=== PATIENT | female | born 1990 | race Caucasian/White ===

== ENCOUNTER 2018-06-20 13:15 | Emergency (ER) | payer OTHER ==
[~2018-06-20] VITALS: Ht 157.5 cm; Wt 63.5 kg
[2018-06-20] MEDS ORDERED: LYSTEDA650 MG PO (15:18)
== END 2018-06-20 16:49 | disposition home or self-care (01) ==
LOC: FSED 13:15
DX: N93.9 Abnormal uterine and vaginal bleeding, unspecified (principal); E28.2 Polycystic ovarian syndrome; F17.210 Nicotine dependence, cigarettes, uncomplicated
CPT/HCPCS: 81003; 81025; 99283

== ENCOUNTER 2018-07-11 03:26 | Emergency (ER) | payer OTHER ==
[~2018-07-11] VITALS: Ht 157.5 cm; Wt 57.6 kg
[~2018-07-11 03:26] MED LIST: LYSTEDA650 MG PO
--- NOTE | 2018-07-11 04:24 | Diagnostic Imaging Report ---
Exam: PA and lateral view of the chest Indication: Cough, fever Comparison: None Findings: The lungs are clear. No pleural effusion or pneumothorax. Normal appearance of the cardiomediastinal silhouette and bones. Impression: No evidence of pneumonia. Signed by: Dr. Tatiana Ramesh M.D. on 07/11/2018 4:21 AM
[2018-07-11 04:28] VITALS: BP 118/86
== END 2018-07-11 04:33 | disposition home or self-care (01) ==
LOC: FSED 03:26
DX: R06.00 Dyspnea, unspecified (principal); J20.9 Acute bronchitis, unspecified; Z87.891 Personal history of nicotine dependence
CPT/HCPCS: 71046; 83518; 87400; 99283

== ENCOUNTER 2023-09-11 01:28 | Emergency (ER) | payer BC ==
[~2023-09-11] VITALS: Ht 160 cm; Wt 68.5 kg
[2023-09-11] MEDS ORDERED: ONDANSETRON HCL INJ 2MG/ML 2ML 2 MG/ML VIAL IV STA (01:46)
[2023-09-11] MEDS ORDERED: FAMOTIDINE 20 MG/2 ML VIAL IV STA (01:46)
[2023-09-11] MEDS ORDERED: SODIUM CHLORIDE 0.9% 1000ML 1,000 ML ONE (01:55)
[2023-09-11] MEDS ORDERED: FAMOTIDINE 20 MG/2 ML VIAL IV ONE (01:55)
[2023-09-11] MEDS ORDERED: ONDANSETRON HCL INJ 2MG/ML 2ML 2 MG/ML VIAL ONE (01:55)
[2023-09-11] MEDS ORDERED: SODIUM CHLORIDE 0.9% 1000ML 1,000 ML IV SCH (02:00)
[2023-09-11] MEDS ORDERED: KETOROLAC TROMETHAMINE 30 MG/ML VIAL IV STA (02:05)
[2023-09-11] MEDS ORDERED: KETOROLAC TROMETHAMINE 30 MG/ML VIAL ONE (02:12)
[2023-09-11] MEDS ORDERED: PROMETHAZINE HCL (IM) 25 MG/ML VIAL IM ONE (02:25)
[2023-09-11] MEDS ORDERED: PROMETHAZINE 12.5MG/ NACL 0.9% 12.5 MG/50 ML BAG IV ONE (02:30)
[2023-09-11] MEDS ORDERED: PROMETHAZINE 25MG/ NS 50ML (IV) IV ONE (02:30)
[2023-09-11] MEDS ORDERED: ONDANSETRON ODT4 MG PO (03:11)
[2023-09-11] MEDS ORDERED: PHENERGAN SUPP25 MG PR (03:11)
[2023-09-11] MEDS ORDERED: PEPCID20 MG PO (03:12)
[2023-09-11] MEDS ORDERED: DICYCLOMINE HCL20 MG PO (03:12)
[2023-09-11 03:21] VITALS: BP 107/59; PULSE 103; RESP 18; TEMP 100.1; O2SAT 97
== END 2023-09-11 03:21 | disposition home or self-care (01) ==
LOC: FSED 01:32
DX: R10.13 Epigastric pain (principal); K52.9 Noninfective gastroenteritis and colitis, unspecified; R11.2 Nausea with vomiting, unspecified; E86.0 Dehydration; E28.2 Polycystic ovarian syndrome; F41.9 Anxiety disorder, unspecified; Z11.52 Encounter for screening for COVID-19; F17.210 Nicotine dependence, cigarettes, uncomplicated
CPT/HCPCS: 0223U; 74176; 80048; 80076; 81003; 81025; 85025; 87400; 96374; 96375; 99284; J1885; J2405; J2550; J7030